=== PATIENT | female | born 1990 | race Caucasian/White ===

== ENCOUNTER 2021-10-19 06:27 | Emergency (ER) | payer SELFPAY ==
[2021-10-19] MEDS ORDERED: Penicillin V Potassium 250 MG TAB ONE (07:05)
== END 2021-10-19 07:08 | disposition home or self-care (01) ==
LOC: BURERS 06:27
DX: K04.7 Periapical abscess without sinus (principal); F17.210 Nicotine dependence, cigarettes, uncomplicated
CPT/HCPCS: 99282